=== PATIENT | female | born 1995 | race Caucasian/White ===

== ENCOUNTER → 2017-02-01 | Outpatient (CLI) | payer BC ==
[~2017-02-01] MED LIST: NKHM
== END | disposition home or self-care (01) ==
LOC: LAB 12:52
DX: N91.2 Amenorrhea, unspecified (principal)

== ENCOUNTER → 2017-08-11 | Outpatient (CLI) | payer BC ==
[2017-08-11 12:52] LABS: ALKALINE PHOSPHATASE 74 U/L (45-117); BUN 7 mg/dl (7-24); CHLORIDE 106 mmol/L (98-107); CREATININE 0.72 mg/dL (0.55-1.02); POTASSIUM 3.9 mmol/L (3.5-5.1); SGOT/AST 15 IU/L (3-35); SGPT/ALT 24 U/L (12-78); SODIUM 139 mmol/L (136-145); TOTAL PROTEIN 7.6 gm/dL (6.4-8.2)
[2017-08-11 13:00] LABS: THYROID STIM HORMONE (HS) 0.981 uIU/ml (0.358-4.75)
[2017-08-12 06:12] LABS: DHEA SULFATE 532.5 ug/dL (110.0-431.7); ESTRADIOL 295.3 pg/mL (.); FOLLICLE STIMULATING HORMONE 1.8 mIU/mL (.); LUTEINIZING HORMONE 004283 6.5 mIU/mL (.)
[2017-08-13 23:05] LABS: TESTOSTERONE FREE, (DIRECT) 10.1 pg/mL (0.0-4.2)
== END | disposition home or self-care (01) ==
LOC: LAB 11:38
PROVIDERS: Nurse Practitioner Women's Health
DX: L68.0 Hirsutism (principal)

== ENCOUNTER → 2018-03-08 | Outpatient (CLI) | payer BC | END | disposition home or self-care (01) | LOC: LAB 09:49 | DX: R63.5 Abnormal weight gain (principal) ==

== ENCOUNTER → 2018-06-20 | Outpatient (CLI) | payer BC ==
[2018-06-20 12:18] LABS: ALBUMIN 3.8 gm/dl (3.1-4.5); ALKALINE PHOSPHATASE 78 U/L (45-117); BUN 11 mg/dl (7-24); CHLORIDE 108 mmol/L (98-107); CHOLESTEROL 145 mg/dL (<200); CREATININE 0.77 mg/dL (0.55-1.02); HDL CHOLESTEROL 42 mg/dl (40-60); LDL CHOLESTEROL 70 mg/dL (9-159); POTASSIUM 3.6 mmol/L (3.5-5.1); SGOT/AST 12 IU/L (3-35); SGPT/ALT 23 U/L (12-78); SODIUM 140 mmol/L (136-145); TOTAL PROTEIN 7.6 gm/dL (6.4-8.2); TRIGLYCERIDES 165 mg/dl (<150); VLDL CHOLESTEROL 33 mg/dL (6-40)
[2018-06-20 12:19] LABS: BILIRUBIN, DIRECT 0.1 mg/dL (0.0-0.2)
[2018-06-21 07:05] LABS: PROLACTIN 004465 13.1 ng/mL (4.8-23.3)
== END | disposition home or self-care (01) ==
LOC: LAB 11:08
PROVIDERS: Internal Medicine
DX: E66.9 Obesity, unspecified (principal); E28.2 Polycystic ovarian syndrome